=== PATIENT | male | born 1990 | race Caucasian/White ===

== ENCOUNTER 2021-09-17 08:20 | Outpatient (RCR) | payer BC, SELFPAY ==
--- NOTE | 2021-09-17 12:26 | PTOPEVAL ---
PHYSICAL THERAPY EVALUATION Thank you for referring Dario Vela to [facility].? Testing results revealed higher level VOR and balance dysfunctions. HEP was explained to Dario and his . No follow up is planned but if he has questions, he is to [facility]. I agree with the above. Referring Physician Date Admitting Provider: Attending Provider: Whitney Washington, ANP Referring Provider: *PT Outpatient Evaluation Start: 09/17/21 08:38 Freq: Status: Active Protocol: Document 09/17/21 08:39 RAVEN (Rec: 09/17/21 09:59 RAVEN [id number]) Therapy Assessment Status Assessment Status Assessment Status Evaluation Outpatient Past Medical History Past Medical History Source of Past Medical History Patient Respiratory History Hx Other Respiratory Disorders Yes: multiple allergies Gastrointestinal History Hx Gastroesophageal Reflux Disease Yes Evaluation Information Problem Diagnosis Vertigo Onset first episode 2018 Subjective Information Dario reports that he has Query Text:As Reported By Patient/ had dizziness in the past - Family appears to be more allergy related - able to control it. Most recently - had COVID vaccine - on a Wednesday - then on Wednesday evening - all of a sudden felt increase in dizziness different in the past. Also felt hot and feverish for a moment - then felt the dizziness. Did see MARGARITA on Wednesday - received Meclizine - has helped. When traveling - will prefer to drive. Will get some dizziness sitting at train crossing - watching train move . Doesn't go on spinning rides at amusement hanks. With recent hearing testing - needed to walk in a trailer - felt unsteady/dizzy with some of the stepping. Will get some dizziness with going from squatting to standing, sitting to standing at times. Getting out of bed - some dizziness at times Prior Level of Function Activity Level (Last 3 Months) Occupation drives heavy equipment, climb up on equipment Hand Dominance
== END 2021-10-17 09:43 | disposition home or self-care (01) ==
LOC: ANHHIPT 08:20
PROVIDERS: PCP Physician Assistant Medical; Visit Provider Physician Assistant Medical
DX: R42 Dizziness and giddiness (principal)
CPT/HCPCS: 97110; 97162

== ENCOUNTER 2023-07-02 02:46 | Day surgery (SDC) | payer BC, SELFPAY ==
[2023-06-18 15:06] VITALS: BMI 29.9
--- NOTE | 2023-07-01 13:48 | PM.HPGS ---
History of Present Illness History of Present Illness Consent: Risks, benefits, and alternatives have been discussed and questions answered. Patient agrees to proceed with procedure. Chief complaint: GERD Narrative: Dario Vela is a 33 year old male Referred for investigation of episodes of indigestion, acid reflux, bloating and upset stomach w/ nausea and vomiting x 6 months. He is currently taking pantoprazole 40mg daily. his attacks seem to come every month or 2. Almost always begins in the morning. He is not sure whether not this is the morning after he has used cannabis. Review of Systems Review of Systems: All systems reviewed & are unremarkable except as noted in HPI and below PMFSH Past Medical History Medical History Allergic rhinitis GERD (gastroesophageal reflux disease) Vitamin D deficiency Surgical History Surgical History No history of previous surgery Family History Family History Father Depression Family history of alcoholism Mother Family history of lung cancer Social History Social History Smoking packs per day: 0.5 Smoking cigarettes per day: 10.0 Years smoked: 10 Smoking pack-years: 5.00 Smoking status: Current every day smoker Tobacco type: cigarettes Second hand tobacco smoke exposure: Yes Alcohol intake: current Substance use: never Substance use type: marijuana Lack of Transportation: No Lack of Food: Never True Current Housing: I Have Housing Concerned About Future Housing: No Difficulty Paying Gas/Electric Bills: No Difficulty Paying for Meds: No Currently Unemployed: No Education: High School Diploma/GED Difficulty w/ Childcare or Family Care: No Living arrangements: with family Occupation/Education: occupation Gender identity (if verbalized by the patient): Male Sexual Orientation (if Verbalized by the Patient): Straight or Heterosexual Spiritual care concerns: No Meds Home Medications and Allergies Home Medications Medication Instructions Recorded Confirmed Type cetirizine 10 mg tablet (Zyrtec) 10 mg PO DAILY 09/29/22 06/18/23 History fluticasone furoate 100 1 inh inhalation DAILY 09/29/22 06/18/23 History mcg-vilanterol 25 mcg/dose inhalation powder (Breo Ellipta) pantoprazole 40 mg tablet,delayed 40 mg PO QAM #90 tabs 12/19/22 06/18/23 Rx release Allergies Allergy/AdvReac Type Severity Reaction Status Date / Time erythromycin base Allergy Unknown Vomiting Verified 07/02/23 08:13 Sulfa (Sulfonamide Allergy Unknown Unknown Verified 07/02/23 08:13 Antibiotics) Honey Bee Allergy Unknown Unknown Uncoded 07/02/23 08:13 paxil AdvReac [place] Uncoded 07/02/23 08:13 unusual Septra AdvReac Vomiting Uncoded 07/02/23 08:13 Exam Const: General: alert Orientation/consciousness: patient oriented x3 Resp: Auscultation: clear to auscultation bilaterally Cardio: Rhythm: regular rhythm GI: GI Palp: Yes Soft to palpation and No Tenderness to palpation present (GI) Neuro: General: patient oriented x3 Assessment and Plan Assessment and plan (1) Epigastric pain: Code(s): R10.13 - Epigastric pain Status: Acute Assessment and Plan: EGD with possible biopsy or dilatation or cautery.
[2023-07-02 08:14] VITALS: BP 125/69; PULSE 68; RESP 16; TEMP 36.4; O2SAT 100
[2023-07-02] MEDS: LACTATED RINGERS 1,000 ML 150 ML IV CONT (08:28)
--- NOTE | 2023-07-02 08:43 | WPDANESEPPF ---
Anes - Initial Pre Proc Eval Procedure: Operation Date: 07/02/23 09:30 Proposed Procedures p Esophagogastroduodenoscopy - Keith Foster MD Date/Time: 07/02/23 08:43 Surgeon: Keith Foster MD Pre Op Diagnosis: GERD Patient Data Age: 33 Gender: M Height: 1.8 m Weight: 95.7 kg Last Vital Signs Temp 97.5 F L 07/02/23 08:14 Pulse 68 07/02/23 08:14 Resp 16 07/02/23 08:14 BP 125/69 07/02/23 08:14 Pulse Ox 100 07/02/23 08:14 O2 Del Method Room Air 07/02/23 08:14 Allergies Allergy/AdvReac Type Severity Reaction Status Date / Time erythromycin base Allergy Unknown Vomiting Verified 07/02/23 08:13 Sulfa (Sulfonamide Allergy Unknown Unknown Verified 07/02/23 08:13 Antibiotics) Honey Bee Allergy Unknown Unknown Uncoded 07/02/23 08:13 paxil AdvReac Kyle Uncoded 07/02/23 08:13 unusual Septra AdvReac Vomiting Uncoded 07/02/23 08:13 Home Medications Medication Instructions Recorded Confirmed Type cetirizine 10 mg tablet (Zyrtec) 10 mg PO DAILY 09/29/22 06/18/23 History fluticasone furoate 100 1 inh inhalation DAILY 09/29/22 06/18/23 History mcg-vilanterol 25 mcg/dose inhalation powder (Breo Ellipta) pantoprazole 40 mg tablet,delayed 40 mg PO QAM #90 tabs 12/19/22 06/18/23 Rx release Patient hx anesthesia problems: none Family hx anesthesia problems: none Results Review: All pre-operative results and documents have been reviewed as part of the pre-operative evaluation. [facility] Past Medical History Medical History Allergic rhinitis GERD (gastroesophageal reflux disease) Vitamin D deficiency Surgical History Surgical History No history of previous surgery Family History Family History Father Depression Family history of alcoholism Mother Family history of lung cancer Social History Social History Smoking packs per day: 0.5 Smoking cigarettes per day: 10.0 Years smoked: 10 Smoking pack-years: 5.00 Smoking status: Current every day smoker Tobacco type: cigarettes Second hand tobacco smoke exposure: Yes Alcohol intake: current Substance use: never Substance use type: marijuana Lack of Transportation: No Lack of Food: Never True Current Housing: I Have Housing Concerned About Future Housing: No Difficulty Paying Gas/Electric Bills: No Difficulty Paying for Meds: No Currently Unemployed: No Education: High School Diploma/GED Difficulty w/ Childcare or Family Care: No Living arrangements: with family Occupation/Education: occupation Gender identity (if verbalized by the patient): Male Sexual Orientation (if Verbalized by the Patient): Straight or Heterosexual Spiritual care concerns: No Anes - Eval Final PreProcedure Day of Procedure 07/02/23 08:43 Patient weight: normal Heart: regular rate and rhythm Lungs: clear to auscultation Airway: Mallampati scale class II Neurological: alert and oriented Last oral intake: >/= 8 hours ASA classification: II Emergent: no Anesthetic plan: proceed Anesthesia type and monitoring: general GIVS and standard monitoring Results Review: All pre-operative results and documents have been reviewed as part of the pre-operative evaluation. Informed Consent: The patient's anesthetic plan and its attendant risks and benefits were discussed with the patient/family/POA. Questions were solicited and answers provided to the satisfaction of the patient/family/POA.
[2023-07-02 09:29] VITALS: BP 125/104; PULSE 84; RESP 20; O2SAT 97
[2023-07-02 09:39] VITALS: BP 125/67; PULSE 82; RESP 20; O2SAT 97
[2023-07-02 09:49] VITALS: BP 105/77; PULSE 74; RESP 18; O2SAT 99
== END 2023-07-02 10:02 | disposition home or self-care (01) ==
PROVIDERS: PCP Physician Assistant Medical; Visit Provider Internal Medicine Gastroenterology
PROC: 0DJ08ZZ Inspection of Upper Intestinal Tract, Via Natural or Artificial Opening Endoscopic (ICD-10-PCS; CPT 43235; principal; 2023-07-02 09:30)
DX: K29.70 Gastritis, unspecified, without bleeding (principal); K21.9 Gastro-esophageal reflux disease without esophagitis; Z79.51 Long term (current) use of inhaled steroids; F17.210 Nicotine dependence, cigarettes, uncomplicated
CPT/HCPCS: 43239; 87081; 88305; J2704; J7120

== ENCOUNTER → 2023-11-03 07:57 | Outpatient (CLI) | payer BC, SELFPAY ==
--- NOTE | ~2023-11-03 | US_ITS ---
US abdomen complete DATE: 11/03/2023 08:19 INDICATION: Abdominal pain, nausea, belching, vomiting TECHNIQUE: Real-time and Doppler analysis of the abdomen COMPARISON: None FINDINGS: The pancreatic tail is not completely demonstrated due to interference from overlying bowel gas. The pancreas otherwise appears unremarkable. No pancreatic duct dilatation. There is hepatic steatosis. No hepatic space-occupying mass lesion is detected. Normal hepatopedal po rtal venous flow. No gallstones or gallbladder wall thickening or abnormal pericholecystic fluid collection. Negative s onographic Espinoza's sign. The common bile duct measures 4 mm, normal. Normal splenic size. Right kidney measures approximately 11.2 cm length, left kidney 11.3 cm. No renal mass lesion or hydr onephrosis is evident. The inferior vena cava is unremarkable. Normal caliber of the abdominal aorta. IMPRESSION: Hepatic steatosis Reviewed, dictated and finalized at [facility]. Reviewed, dictated and finalized at location [facility]. M INSPECTOR IMPRESSION: Hepatic steatosis
== END ==
PROVIDERS: PCP Physician Assistant Medical; Visit Provider Physician Assistant Medical
DX: K76.0 Fatty (change of) liver, not elsewhere classified (principal)
CPT/HCPCS: 76700

== ENCOUNTER 2024-02-11 08:01 | Outpatient (CLI) | payer BC, SELFPAY ==
--- NOTE | ~2024-02-11 | NM_ITS ---
EXAMINATION: NM hepatobiliary wo pharm DATE: 02/11/2024 11:05 INDICATION: Vomiting COMPARISON: Ultrasound dated 11/03/2023 TECHNIQUE: 4.7 mCi Tc-99m mebrofenin (Choletec) was administered intravenously. Scintigraphic images of the abdomen were obtained for one hour. At the 1 hour time point, the patient drank 8 oz Ensure, and imaging was continued for 60 minutes. Gallbladder ejection fraction was calculated by the technol ogist. FINDINGS: There is normal clearance of radiotracer from the blood pool. There is homogeneous tracer u ptake by the liver. Activity progresses to the bowel and gallbladder. The gallbladder ejection fract ion (GBEF) is 90%. Note that with this technique, normal GBEF >= 33%. IMPRESSION: 1. Normal hepatobiliary scan Reviewed, dictated and finalized at location [facility].
== END 2024-02-11 08:02 | disposition home or self-care (01) ==
PROVIDERS: PCP Physician Assistant Medical; Visit Provider Physician Assistant Medical
DX: K21.9 Gastro-esophageal reflux disease without esophagitis (principal); R11.10 Vomiting, unspecified
CPT/HCPCS: 78226; A9537

== ENCOUNTER 2025-02-26 10:48 | Emergency (ER) | payer BC, SELFPAY ==
[2025-02-26 10:52] VITALS: BP 142/94; PULSE 91; RESP 19; TEMP 36.6; O2SAT 100
--- NOTE | 2025-02-26 12:08 | ED_ITS ---
HPI - Skin/Abscess/Foreign Bdy General Chief complaint: Skin/Abscess/Foreign Body <Cindy Armenta PA-C - Last Filed: 02/26/25 17:42> Stated complaint: cyst on tailbone <Cindy Armenta PA-C - Last Filed: 02/26/25 17:42> Time Seen by Provider: 02/26/25 12:08 <Cindy Armenta PA-C - Last Filed: 02/26/25 17:42> Focused HPI: This is a 34 year old male that presents to the ER for swelling to the tailbone, ongoing since Wednesday. Reports previous history of same. Reports worsening pain to the area. He was not able to get in to see his PCP which prompted him to come to the ER. Denies fevers or drainage. GENERAL: Well-appearing, well-nourished, and in no acute distress. HEAD: Normocephalic, atraumatic. CHEST: No respiratory distress. HEART: Regular rate ? NEURO: ?Alert and oriented x3. Patient screened in triage and initial orders placed.? ?Additional care and disposition to be based upon?diagnostic testing and treatment. <Cindy Armenta PA-C - Last Filed: 02/26/25 17:42> Related Data Home medications: Home Medications ?Medication ?Instructions ?Recorded ?Confirmed ?Last Taken ?Type cetirizine 10 mg tablet (Zyrtec) 10 mg PO DAILY 09/29/22 10/04/24 Unknown Histo ry <MARGARITA Nagel Last Filed: 02/26/25 17:42> Allergies/Adverse reactions: Allergies Allergy/AdvReac Type Severity Reaction Status Date / Time sulfamethizole Allergy Severe Unknown Verified 02/26/25 10:55 erythromycin base Allergy Unknown Vomiting Verified 02/26/25 10:55 Sulfa (Sulfonamide Allergy Unknown Unknown Verified 02/26/25 10:55 Antibiotics) bee venom protein (honey bee) Allergy Unknown Verified 02/26/25 10:55 paroxetine (From Paxil) Allergy Other Verified 02/26/25 10:55 sulfamethoxazole (From AdvReac Vomiting Verified 02/26/25 10:55 Septra) trimethoprim (From Septra) AdvReac Vomiting Verified 02/26/25 10:55 <Cindy Armenta PA-C - Last Filed: 02/26/25 17:42> Review of Systems Review of Systems: All systems reviewed & are unremarkable except as noted in HPI and below <Cindy Armenta PA-C - Last Filed: 02/26/25 17:42> [facility] Past Medical History Medical History: Medical History (Updated 02/26/25 @ 14:21 by Anthony Ballard MD) Mild persistent asthma, uncomplicated Previously saw Dr. Downs Gastritis Hepatic steatosis Emesis Dyspepsia Allergic rhinitis GERD (gastroesophageal reflux disease) Vitamin D deficiency <Cindy Armenta PA-C - Last Filed: 02/26/25 17:42> Surgical History Surgical History: Surgical History (System 03/22/24 @ 10:12 by Gretta Junior) No history of previous surgery <Cindy Armenta PA-C - Last Filed: 02/26/25 17:42> Family History Family History: Family History (Reviewed 01/18/24 @ 08:29 by Radha Callejas [facility]) Father Depression Family history of alcoholism Mother Family history of lung cancer <Cindy Armenta PA-C - Last Filed: 02/26/25 17:42> Social History Social History: Social History (Updated 10/03/24 @ 10:18 by Casimiro Holder) Social History: 10/02/24 Patient declined SDOH Smoking packs per day: 0.5 Smoking cigarettes per day: 10.0 Years smoked: 10 Smoking pack-years: 5.00 Smoking status: Current every day smoker Tobacco type: cigarettes Second hand tobacco smoke exposure: Yes Alcohol intake: current Substance use: never Substance use type: marijuana Lack of Transportation: No Lack of Food: Never True Current Housing: I Have Housing Concerned About Future Housing: No Difficulty Paying Gas/Electric Bills: No Difficulty Paying for Meds: No Currently Unemployed: No Education: High School Diploma/GED Difficulty w/ Childcare or Family Care: No Living arrangements: with family Occupation/Education: occupation Gender identity (if verbalized by the patient): Male Sexual Orientation (if Verbalized by the Patient): Straight or Heterosexual Spiritual care concerns: No <Cindy Armenta PA-C - Last Filed: 02/26/25 17:42> Course Vital Signs Vital signs: Vital Signs Temperature 97.8 F 02/26/25 10:52 Pulse Rate 91 02/26/25 10:52 Respiratory Rate 19 02/26/25 10:52 Blood Pressure 142/94 H 02/26/25 10:52 Pulse Oximetry 100 02/26/25 10:52 Oxygen Delivery Room Air 02/26/25 10:52 Temperature 97.8 F 02/26/25 10:52 Pulse Rate 91 02/26/25 10:52 Respiratory Rate 19 02/26/25 10:52 Blood Pressure 142/94 H 02/26/25 10:52 Pulse Oximetry 100 02/26/25 10:52 Oxygen Delivery Room Air 02/26/25 10:52 <Cindy Armenta PA-C - Last Filed: 02/26/25 17:42> Vital Signs Temperature 97.8 F 02/26/25 10:52 Pulse Rate 91 02/26/25 10:52 Respiratory Rate 19 02/26/25 10:52 Blood Pressure 142/94 H 02/26/25 10:52 Pulse Oximetry 100 02/26/25 10:52 Oxygen Delivery Room Air 02/26/25 10:52 Temperature 97.8 F 02/26/25 10:52 Pulse Rate 91 02/26/25 10:52 Respiratory Rate 19 02/26/25 10:52 Blood Pressure 142/94 H 02/26/25 10:52 Pulse Oximetry 100 02/26/25 10:52 Oxygen Delivery Room Air 02/26/25 10:52 <Anthony Ballard MD - Last Filed: 02/26/25 14:28> Procedures Abscess I/D buttock: Date of Incision: 02/26/25 <Anthony Ballard MD - Last Filed: 02/26/25 14:28> Time of Incision: 14:26 <Anthony Ballard MD - Last Filed: 02/26/25 14:28> Local Anesthetic: lidocaine 1%, bupivacaine 0.5% and with epi <Anthony Ballard MD - Last Filed: 02/26/25 14:28> Amount of anesthesia used (mL): 4 <Anthony Ballard MD - Last Filed: 02/26/25 14:28> Technique: incised with #11 blade <Anthony Ballard MD - Last Filed: 02/26/25 14:28> Packing used?: iodoform <Anthony Ballard MD - Last Filed: 02/26/25 14:28> I&D Results: Pus <Anthony Ballard MD - Last Filed: 02/26/25 14:28> Complications: pain <Anthony Ballard MD - Last Filed: 02/26/25 14:28> Discharge Plan Discharge Clinical Impression: Pilonidal cyst with abscess <Cindy Armenta PA-C - Last Filed: 02/26/25 17:42> Patient Disposition: Home <Cnidy Armenta PA-C - Last Filed: 02/26/25 17:42> Condition: Stable <Cindy Armenta PA-C - Last Filed: 02/26/25 17:42> Instructions: Antibiotic Form, Pilonidal Cyst (ED) <Cindy Armenta PA-C - Last Filed: 02/26/25 17:42> Additional Instructions: Return ER if you have worsening pain, you develop fever 100.4? F, have additional concerns. Remove your packing in 2 days. <Cindy Armenta PA-C - Last Filed: 02/26/25 17:42> Patient Language: Frisian <Cindy Armenta PA-C - Last Filed: 02/26/25 17:42> Prescriptions: New hydrocodone-acetaminophen 5-325 mg tablet 1 tablet PO Q6H PRN (Reason: pain) Qty: 12 0RF ondansetron 4 mg tablet,disintegrating 4 mg PO Q6H PRN (Reason: nausea and vomiting) Qty: 10 0RF amoxicillin-pot clavulanate 875-125 mg tablet 1 tablet PO Q12H Qty: 20 0RF No Action cetirizine [Zyrtec] 10 mg tablet 10 mg PO DAILY dicyclomine 10 mg capsule 10 mg PO QID PRN (Reason: abdominal pain) Qty: 30 0RF fluticasone furoate-vilanterol [Breo Ellipta] 100-25 mcg/dose blister with device 1 inh inhalation DAILY Qty: 180 1RF albuterol sulfate 90 mcg/actuation HFA aerosol inhaler 2 inh inhalation Q4H PRN (Reason: shortness of breath or wheezing) Qty: 6.7 0RF ondansetron 4 mg tablet,disintegrating 4 mg PO Q8H PRN (Reason: nausea and vomiting) Qty: 10 3RF pantoprazole 40 mg tablet,delayed release (DR/EC) 40 mg PO QAM Qty: 90 1RF <Cindy Armenta PA-C - Last Filed: 02/26/25 17:42> Follow-up/Referrals: Deborah Rojas MD [Physician] - 1 Week Whitney Washington PA-C [Primary Care Provider] - 1 Week <Cindy Armenta PA-C - Last Filed: 02/26/25 17:42> Stand Alone Forms: Work/School Release IP <Cindy Armenta PA-C - Last Filed: 02/26/25 17:42>
--- OUTSIDE RECORDS SUMMARY | 2025-02-26 12:36 | XMS_ITS | Clinical Summary ---
Author Organization [facility] Address [facility] [place] [address] Care Team Providers Care Sexton Helper Name Role Phone Whitney Washington Primary Care Provider [phone] Allergies Active Allergy Reactions Criticality Noted Date Comments Azithromycin Nausea and Vomiting 11/30/2019 Sulfa Antibiotics Anaphylaxis High 11/30/2019 Medications pantoprazole EC 20 MG tablet Take 1 tablet (20 mg total) by mouth daily. Active fluticasone furoate-vilanterol 100-25 MCG/INH inhaler Inhale 1 puff into the lungs daily. Active albuterol sulfate HFA 108 (90 Base) MCG/ACT inhaler Inhale 2 puffs into the lungs every 6 (six) hours as needed for Wheezing. Active ondansetron (ZOFRAN-ODT) 4 MG disintegrating tablet DISSOLVE 1 TABLET ON THE TONGUE EVERY 8 HOURS NEEDED FOR NAUSEA OR VOMITING 4 Active Active Problems No known active problems Immunizations Immunization Administration Dates Next Due Dtp (Generic) 03/18/1994 Hepatitis B Pediatric 02/20/1999,10/03/1998,08/02 MMR (MMRII) 03/18/1994 Polio Opv (Generic) 03/18/1994 Social History Tobacco Use Types Packs/Day Years Used Date Smoking Tobacco: Every Day Cigarettes Smokeless Tobacco: Never Tobacco Cessation:Ready to Q uit: No; Counseling Given: Yes Alcohol Use Standard Drinks/Week Comments Yes 0 (1 standard drink = 0.6 oz pur e alcohol) SOCIALLY Sex and Gender Information Value Date Recorded Sex Assigned at Not on file Legal Sex Male 5:52 PM CDT Gender Identity Not on file Sexual Orientation Not on file Last Filed Vital Signs Vital Sign Reading Time Taken Comments Blood Pressure 140/92 06/23/2024 4:24 PM CDT Pulse 96 06/23/2024 4:24 PM CDT Temperature 36.4 C (97.5 F) 06/23/2024 4:24 PM CDT Respiratory Rate 18 06/23/2024 4:24 PM CDT Oxygen Saturation 100% 06/23/2024 4:24 PM CDT Inhaled Oxygen Concentration - - Weight 93 kg (205 lb) 06/23/2024 4:24 PM CDT Height 180.3 cm (5' 11 ) 06/23/2024 4:24 PM CDT Body Mass Index 28.59 06/23/2024 4:24 PM CDT Plan of Treatment Health Maintenance Due Date Last Done Comments Annual Physical 1992 Hepatitis C 2007 DTaP, Tdap and Td Vaccines ( 2 - Tdap) 2008 03/18/1994 Pneumococcal Vaccine: Pediatrics (0 to 5 Years) and At-Risk Patients (6 to 49 Years) (1 of 2 - PCV) 2008 COVID-19 Vaccine (2023-2 5 season) 2024 10/03/2021, 09/05/2021 PHQ-2 (Physician [place]) 11/01/2024 Hepatitis B Vaccines Completed 02/20/1999, 10/03/1998, 08/29/1998 HPV Vaccines Aged Out No longer eligi ble based on patient's age to complete this topic Meningococcal B Vaccine Aged Out No l onger eligible based on patient's age to complete this topic Meningococcal Vaccine Aged Out No ace carolee eligible based on patient's age to complete this topic RSV Immunizations Under 20 Months Aged Out No longer eligible b ased on patient's age to complete this topic Insurance BLUE CROSS BLUE [employer]IELD Care Teams Sexton Helper Relationship Specialty Start Date End Date Whitney Washington PA PCP - General PHYSICIAN PLUMBER 11/30/19
--- OUTSIDE RECORDS SUMMARY | 2025-02-26 14:16 | XMS_ITS | Clinical Summary ---
Author Organization [facility] Address [facility] [place] [address] Care Team Providers Care Writer Technical Publications Name Role Phone Whitney Washington Primary Care Provider [phone] Allergies Active Allergy Reactions Criticality Noted Date [...] 5 season) 2024 10/03/2021, 09/05/2021 PHQ-2 (Physician [place]) 11/01/2024 Hepatitis B Vaccines Completed 02/20/1999, 10/03/1998, [...] Insurance BLUE CROSS BLUE SHIELD Care Teams Writer Technical Publications Relationship Specialty Start Date End Date Whitney Washington PA PCP - General PHYSICIAN DESIGN SUPERVISOR 11/30/19
== END 2025-02-26 14:32 | disposition home or self-care (01) ==
PROVIDERS: Emergency Provider Emergency Medicine; PCP Physician Assistant Medical
DX: L05.01 Pilonidal cyst with abscess (principal); J45.30 Mild persistent asthma, uncomplicated; E55.9 Vitamin D deficiency, unspecified; K21.9 Gastro-esophageal reflux disease without esophagitis; F17.210 Nicotine dependence, cigarettes, uncomplicated
CPT/HCPCS: 10080; 99283

== ENCOUNTER 2025-05-18 00:17 | Day surgery (SDC) | payer BC, SELFPAY ==
[2025-05-15 16:58] VITALS: BMI 29.9
--- NOTE | 2025-05-15 17:15 | SUR.PREOP ---
Report to the Outpatient Waiting Room, entrance under the green pavilion located off [facility], at time 6:00a.m. on date 05/18/2025. Planned Procedure Time: 7:30a.m..? Time changes happen often and if your time is changed the preop area will call you the afternoon before. - You and your visitor will be asked to self-screen and do not enter if you have any COVID symptoms. Please call surgeon if you need to reschedule. - A mask is optional within the hospital at this time. Patients may have clear liquids (water, carbonated beverages, clear teas, apple juice) until 3 hours prior to surgery with a maximum of 20 ounces. - No food from midnight until time of surgery and no smoking, or chewing tobacco (or any form of nicotine). No chewing gum, candy or mints. Take only the following medications with a SIP of water on the morning of surgery: inhalers DO NOT STOP ANY OF YOUR OTHER PRESCRIPTION MEDICATIONS PRIOR TO SURGERY EXCEPT THE FOLLOWING Hold all vitamins and supplements for 3 days per anesthesiologist. Medications to discontinue per physician VITAMINS Date to take last dose 05/15/2025 Please no make-up, nail tamazight, hairspray, perfume, deodorant, or body powder the day of surgery.? No jewelry (including any body piercings) or valuables the day of surgery, leave them at home.? Please take a shower or bath the night before, or the morning of, surgery with an antibacterial soap.? Wear comfortable, loose fitting clothing.? Children are encouraged to wear pajamas. - Jewelry must be removed prior to entering the operating room.? Rings and piercings that are not removed may be cut off. - The hospital will not accept responsibility for valuables.? - Please leave all valuables, including medications, at home the day of surgery. If you are going home after surgery, a licensed dumpcart driver must drive you home.? - NO public transportation without another adult if you receive anesthesia. - We recommend that an adult stay with you for 24 hours following discharge. - We also recommend that you do not drive, make important decision, drink alcoholic beverages, or take any drugs that were not prescribed by your health care provider for at least 24 hours after your discharge time. Follow any additional instructions given to you from your surgeon. Telephone instructions given to Dario Dane and asked if any additional questions and then verbalized understanding. Patient advised to call surgeon office or pre surgery nurse liaison [phone] if any additional questions.
[2025-05-18] VITALS (9 sets, daily range): BP systolic 113–141; BP diastolic 79–96; PULSE 75–99; RESP 12–24; TEMP 36.2–37.1; O2SAT 96–100
--- OUTSIDE RECORDS SUMMARY | 2025-05-18 00:19 | XMS_ITS | Clinical Summary ---
Author Organization [facility] Address [facility] [place] [address] Care Team Providers [employer] Name Role Phone Whitney Washington Primary Care Provider [phone] Allergies Active Allergy Reactions Criticality Noted Date [...] 4:24 PM CDT Height 180.3 cm (5' 11) 06/23/2024 4:24 PM CDT Body Mass Index [...] 5 season) 2024 10/03/2021, 09/05/2021 PHQ-2 (Physician [place]) 11/01/2024 Hepatitis B Vaccines Completed 02/20/1999, 10/03/1998, [...] Insurance BLUE CROSS BLUE SHIELD Care Teams [employer] Relationship Specialty Start Date End Date Whitney Washington PA PCP - General PHYSICIAN FINANCIAL SERVICES PROFESSIONAL 11/30/19
--- NOTE | 2025-05-18 06:51 | WPDANESEPPF ---
Anes - Initial Pre Proc Eval Procedure: Operation Date: 05/18/25 07:30 Proposed Procedures p Pilonidal Cystectomy - Zeus Rice MD s Excision Right Posterior Lateral Neck Cyst - Zeus Rice MD Date/Time: 05/18/25 06:51 Surgeon: Zeus Rice MD Pre Op Diagnosis: Pilonidal Cyst, Rt posterior lateral neck cyst Patient Data Age: 35 Gender: M Height: 1.8 m Weight: 97.52 kg Allergies Allergy/AdvReac Type Severity Reaction Status Date / Time sulfamethizole Allergy Severe Unknown Verified 05/15/25 16:54 erythromycin base Allergy Unknown Vomiting Verified 05/15/25 16:54 Sulfa (Sulfonamide Allergy Unknown Unknown Verified 05/15/25 16:54 Antibiotics) bee venom protein (honey bee) Allergy Unknown Verified 05/15/25 16:54 paroxetine (From Paxil) Allergy Other Verified 05/15/25 16:54 sulfamethoxazole (From AdvReac Vomiting Verified 05/15/25 16:54 Septra) trimethoprim (From Septra) AdvReac Vomiting Verified 05/15/25 16:54 Home Medications ?Medication ?Instructions ?Recorded ?Confirmed ?Type cetirizine 10 mg tablet (Zyrtec) 10 mg PO DAILY 09/29/22 05/15/25 History dicyclomine 10 mg capsule 10 mg PO QID PRN abdominal pain 01/18/24 05/15/25 Rx #30 caps albuterol sulfate 90 mcg/actuation 2 inh inhalation Q4H PRN shortness 10/04/24 05/15/25 Rx aerosol inhaler of breath or wheezing #6.7 grams pantoprazole 40 mg tablet,delayed 40 mg PO QAM #90 tabs 12/08/24 05/15/25 Rx release fluticasone furoate 100 1 inh inhalation DAILY #180 ea 04/06/25 05/15/25 Rx mcg-vilanterol 25 mcg/dose inhalation powder (Breo Ellipta) ondansetron 4 mg disintegrating 4 mg PO Q6H PRN nausea and 05/01/25 05/15/25 Rx tablet vomiting #10 tabs cholecalciferol (vitamin D3) 50 50 mcg PO DAILY #90 caps 05/07/25 05/15/25 Rx mcg (2,000 unit) capsule sildenafil 50 mg tablet (Viagra) 50 mg PO DAILY PRN sexual activity 05/15/25 05/15/25 History Patient hx anesthesia problems: none Family hx anesthesia problems: none Results Review: All pre-operative results and documents have been reviewed as part of the pre-operative evaluation. [facility] Past Medical History Medical History (Updated 05/04/25 @ 17:55 by Whitney Washington PA-C) Vitamin B12 deficiency Mild persistent asthma, uncomplicated Previously saw Dr. Downs Gastritis Hepatic steatosis Emesis Dyspepsia Allergic rhinitis GERD (gastroesophageal reflux disease) Vitamin D deficiency Surgical History Surgical History (Updated 03/13/25 @ 10:37 by Nate Gonzalez MA) Hx of removal of cyst Hx of endoscopy No history of previous surgery Family History Family History (Updated 03/13/25 @ 10:37 by Nate Gonzalez MA) Father Depression Family history of alcoholism Mother Family history of lung cancer Depression Mother Family history of diabetes mellitus in first degree relative Grandparent Family history of lung cancer Social History Social History (Updated 05/01/25 @ 11:17 by Hailey Dee MA) Social History: 04/24/25 Patient declined SDOH Smoking packs per day: 0.5 Smoking cigarettes per day: 10.0 Years smoked: 10 Smoking pack-years: 5.00 Smoking status: Current every day smoker Tobacco type: cigarettes Second hand tobacco smoke exposure: Yes Alcohol intake: current Substance use: never Substance use type: marijuana Lack of Transportation: No Lack of Food: Never True Current Housing: I Have Housing Concerned About Future Housing: No Difficulty Paying Gas/Electric Bills: No Difficulty Paying for Meds: No Currently Unemployed: No Education: High School Diploma/GED Difficulty w/ Childcare or Family Care: No Living arrangements: with family Occupation/Education: occupation Gender identity (if verbalized by the patient): Male Sexual Orientation (if Verbalized by the Patient): Straight or Heterosexual Spiritual care concerns: No Anes - Eval Final PreProcedure Day of Procedure 05/18/25 06:51 Patient weight: obese Heart: regular rate and rhythm Lungs: clear to auscultation Airway: Mallampati scale class II Neurological: alert and oriented Last oral intake: >/= 8 hours ASA classification: III Emergent: no Anesthetic plan: proceed Anesthesia type and monitoring: general ETT and standard monitoring Results Review: All pre-operative results and documents have been reviewed as part of the pre-operative evaluation. Informed Consent: The patient's anesthetic plan and its attendant risks and benefits were discussed with the patient/family/POA. Questions were solicited and answers provided to the satisfaction of the patient/family/POA.
[2025-05-18] MEDS: LACTATED RINGERS 1,000 ML 30 ML IV CONT (07:00)
[2025-05-18] MEDS: SCOPOLAMINE 1 MG PATCH 1 PATCH TRANSDERM (07:00)
--- NOTE | 2025-05-18 07:19 | P.HP_ITS ---
H&P: HPI History of Present Illness Date/Time: 05/18/25 07:19 Chief Complaint: Pilonidal cyst Narrative: Dario is a 34 y/o male who presents to the office at the request of Whitney Washington PA-C for an evaluation of a pilonidal cyst without abscess. Patient states he has had flare-ups of the cyst for approximately 1 year. Patient reports the area has spontaneously drained at times, but this recent flare up caused him so much pain he presented to [facility] on 02/26/25 where and I&D was performed and he was prescribed antibiotics. He has since finished antibiotics. He denies current pain or drainage. Patient also reports he has had a lump on his neck for years. Review of Systems Review of Systems: The remainder of the review of systems to include constitutional, HEENT, cardiovascular, respiratory, GI, , integumentary, musculoskeletal, endocrine, immunologic, hematologic, psychiatric, and neurologic are all negative except for which is mentioned above in the HPI. [facility] Past Medical History Medical History Vitamin B12 deficiency Mild persistent asthma, uncomplicated Previously saw Dr. Downs Gastritis Hepatic steatosis Emesis Dyspepsia Allergic rhinitis GERD (gastroesophageal reflux disease) Vitamin D deficiency Surgical History Surgical History Hx of removal of cyst Hx of endoscopy No history of previous surgery Family History Family History Father Depression Family history of alcoholism Mother Family history of lung cancer Depression Mother Family history of diabetes mellitus in first degree relative Grandparent Family history of lung cancer Social History Social History Social History: 04/24/25 Patient declined SDOH Smoking packs per day: 0.5 Smoking cigarettes per day: 10.0 Years smoked: 10 Smoking pack-years: 5.00 Smoking status: Current every day smoker Tobacco type: cigarettes Second hand tobacco smoke exposure: Yes Alcohol intake: current Substance use: never Substance use type: marijuana Lack of Transportation: No Lack of Food: Never True Current Housing: I Have Housing Concerned About Future Housing: No Difficulty Paying Gas/Electric Bills: No Difficulty Paying for Meds: No Currently Unemployed: No Education: High School Diploma/GED Difficulty w/ Childcare or Family Care: No Living arrangements: with family Occupation/Education: occupation Gender identity (if verbalized by the patient): Male Sexual Orientation (if Verbalized by the Patient): Straight or Heterosexual Spiritual care concerns: No Meds Home Medications and Allergies Home Medications ?Medication ?Instructions ?Recorded ?Confirmed ?Type cetirizine 10 mg tablet (Zyrtec) 10 mg PO DAILY 09/29/22 05/15/25 History dicyclomine 10 mg capsule 10 mg PO QID PRN abdominal pain 01/18/24 05/15/25 Rx #30 caps albuterol sulfate 90 mcg/actuation 2 inh inhalation Q4H PRN shortness 10/04/24 05/15/25 Rx aerosol inhaler of breath or wheezing #6.7 grams pantoprazole 40 mg tablet,delayed 40 mg PO QAM #90 tabs 12/08/24 05/15/25 Rx release fluticasone furoate 100 1 inh inhalation DAILY #180 ea 04/06/25 05/15/25 Rx mcg-vilanterol 25 mcg/dose inhalation powder (Breo Ellipta) ondansetron 4 mg disintegrating 4 mg PO Q6H PRN nausea and 05/01/25 05/15/25 Rx tablet vomiting #10 tabs cholecalciferol (vitamin D3) 50 50 mcg PO DAILY #90 caps 05/07/25 05/15/25 Rx mcg (2,000 unit) capsule sildenafil 50 mg tablet (Viagra) 50 mg PO DAILY PRN sexual activity 05/15/25 05/15/25 History Allergies Allergy/AdvReac Type Severity Reaction Status Date / Time sulfamethizole Allergy Severe Unknown Verified 05/18/25 07:20 erythromycin base Allergy Unknown Vomiting Verified 05/18/25 07:20 Sulfa (Sulfonamide Allergy Unknown Unknown Verified 05/18/25 07:20 Antibiotics) bee venom protein (honey bee) Allergy Unknown Verified 05/18/25 07:20 paroxetine (From Paxil) Allergy Other Verified 05/18/25 07:20 sulfamethoxazole (From AdvReac Vomiting Verified 05/18/25 07:20 Septra) trimethoprim (From Septra) AdvReac Vomiting Verified 05/18/25 07:20 Vital Signs Vital Signs - 24 hr 05/18/25 07:00 Temperature 37.1 C Pulse Rate 75 Respiratory Rate 14 Blood Pressure 122/79 Pulse Oximetry 100 Oxygen Delivery Room Air Exam Const: General: comfortable and no acute distress HENMT: Ears: TM's normal bilaterally Face/Nose/Sinus: Normal nares present Mouth: Yes moist mucous membranes Eyes: General: appearance normal, both eyes and all related structures Sclera: sclerae normal Pupils: Equal, round and reactive pupils present EOM: EOMs intact bilaterally Neck: Neck: supple and no JVD Resp: Effort & Inspection: normal respiratory effort Auscultation: clear to auscultation bilaterally Cardio: Rate: regular rate Rhythm: regular rhythm GI: GI Palp: Yes Soft to palpation, No Firmness to palpation present (GI), No Tenderness to palpation present (GI), No Guarding due to palpation present (GI) and No Hernia present Skin: Other: At upper midline gluteal cleft, there are 2 pits in upper 1/2 of cleft. No abscess at this time, no redness or drainage. 2cm x 1.5cm sebaceous cyst right posterior lateral neck. Neuro: General: gait normal Speech: normal speech Sensory Exam: normal sensation Extrem: General: normal to inspection Psych: Mental Status: mental status grossly normal Affect: normal affect Assessment and Plan Assessment and plan (1) Pilonidal cyst: Code(s): L05.91 - Pilonidal cyst without abscess Status: Acute Assessment and Plan: I have reviewed office notes from Whitney Washington PA-C along with [facility] notes prior to patient visit. I am recommending a pilonidal cystectomy and excision right posterior lateral neck cyst to be done under general anesthesia as an outpatient. Procedure risks, benefits, indications, and expected outcomes were discussed with the patient in detail. All questions were answered. Patient would like to proceed. Follow-up 2 weeks postoperatively.
--- NOTE | 2025-05-18 07:22 | WPDHPUPDATE1 ---
History and Physical Update Update Date/Time: 05/18/25 07:22 History and Physical has been reviewed, including an updated exam of the patient. There are NO changes in the patient's condition. Risks, benefits, and alternatives have been discussed and questions answered. Patient agrees to proceed with procedure.
[2025-05-18] MEDS: ceFAZolin 2 GM in SODIUM CHLORIDE 0.9% IV 50 ML 100 ML IVPB (07:28)
--- NOTE | 2025-05-18 08:04 | S_PTH ---
PATIENT: Dario Vela LOC: [facility] U#:[id number] AGE/SX: 35/M ROOM: RE05/18/[address]: Zeus Rice MD : 1990 BED: DIS: 05/18/2025 SPEC #: [id number] RECD: 05/18/25 10:08 STATUS: ELIDA REQ #: [id number] MARYJANE: 05/18/25 08:[address]: Zeus Rice DEPT: [facility] Surgical RECD BY: Jessica Gamboa ENTERED: 05/18/25 10:08 SP TYPE: Surgical OTHR DR: Whitney Washington PA-C Tissues: A - Cyst B - Cyst Procedures: Hematoxylin and Eosin Stain Gross and Microscopic Level 4
[2025-05-18] MEDS: KETOROLAC 15 MG/ML VIAL (*BKC) IV PUSH (08:34)
[2025-05-18] MEDS: LIDO 1%/EPINEPHRINE 1:100,000 20 ML VIAL INFILTRATE (09:01)
--- NOTE | 2025-05-18 09:02 | SUR.OPER ---
posterior lateral neck cyst .[id number] with 3cm wound closure
--- NOTE | 2025-05-18 09:18 | P.OP_ITS ---
Procedure Note - Detailed Date of Procedure 05/18/25 Pre-op Diagnosis Pilonidal Cyst, Rt posterior lateral neck cyst Post-op Diagnosis Same Procedure Performed Extensive pilonidal cystectomy Excision right posterior lateral sebaceous cyst with 3cm intermediate layered wound closure Surgeon Zeus Rice MD Account Planner ROBIN Domínguez Anesthesia General Indications Patient is a 35-year-old white male who has had multiple episodes of infection of pilonidal cyst. He has had at least 1 incision and drainage of an abscess associated with the cyst. He currently has no infection the cyst of which is to have a pilonidal cystectomy prevent further episodes of abscess formation and infection. He also has a small non ruptured 1.5cm right posterior neck sebaceous cyst which he would like to have excised as well. He has been large in slowly. We will go ahead remove that cyst as well. Findings Patient had a pilonidal cyst in the midportion of the upper midline gluteal cleft. There was a sinus tract and extension of the cyst superiorly with a chronic abscess cavity which was excised cyst. The excision of the pilonidal cyst requiring multiple layers of closure for an extensive pilonidal cystectomy. The cyst on the right posterior lateral neck measured [id number]. It required a 3cm intermediate layered wound closure Description of Procedure After informed consent was obtained patient brought to the operating room was placed under general endotracheal anesthesia on the gurney then turned onto the prone jun-knife position on the operating table. Care was taken make sure all the pressure points well padded. The buttocks were then taped apart exposing the upper midline gluteal cleft. There was then prepped and draped usual sterile fashion. I then identified the 2 pits within the midportion of the upper midline gluteal cleft. There was no scar were a pilonidal abscess had been drained previously. This is in the midline above the pilonidal cysts. I then made a elongated elliptical incision to include the scar from the abscess drainage as well as the pits in the midline and the underlying pilonidal cyst wall. Dissection was carried deeply down through the dermis skin with a scalpel electrocautery was used to dissect down through the subcutaneous tissues all the way down to the presacral fascia. I completely excised out the ellipse of tissue with the overlying attached skin and pilonidal cyst as well as the chronic abscess cavity extending cephalad for about 2cm from the openings to the pilonidal cyst. This was all sent to pathology for examination. I then irrigated out the incision sterile saline solution the hemostasis was achieved utilized electrocautery. This was an extensive excision of the pilonidal cyst. After injection of 1% lidocaine mixed with 0.5% Marcaine with some epinephrine mixed in a 50 50 mixture, the wound was then closed in multiple layers of interrupted 0 Vicryl sutures in the deeper subcutaneous tissues just above the presacral fascia. This was then followed by layer interrupted 2-0 Vicryl sutures in the mid subcutaneous tissues. The most superficial subcutaneous tissues were then closed utilizing 3-0 Vicryl sutures in the deep dermal layer. Interrupted 3-0 nylon sutures placed in a vertical mattress fashion was then placed to approximate the edges of the skin. The incision closed easily without any tension. It was then cleaned and then dressed with antibiotic ointment and cover with a dry dressing. I then turned my attention to excising out the right posterior lateral neck sebaceous cyst. 1% lidocaine without epinephrine was injected around the cyst wall for local anesthetic effect. I then made an elliptical transverse incision deeply down through the dermis the skin for operating the whole cyst wall without rupturing the cyst wall. Electrocautery was then used to completely excise out the ellipse of tissue encompassing the whole cyst wall in the attached ellipse of skin. The cyst measured approximately [id number]. It was sent to pathology for examination. I then achieved hemostasis in the incision electrocautery. The was then irrigated sterile saline solution and then closed utilizing interrupted 3-0 Vicryl sutures in multiple layers and subcutaneous tissues. Skin edges were then approximated utilizing a running subcuticular 4-0 Monocryl suture. The intermediate layered wound closure measured 3 cm in length. Incision was then cleaned the skin glue was applied. The patient tolerated the procedure well no complications. All sponges, needles, and instrument counts were correct at the end procedure. EBL was _20__cc. The patient was awakened and taken to recovery in stable and satisfactory condition. Implants None Estimated Blood Loss 20 Drains No Packing No Pathology Yes (Pilonidal cyst and posterior neck cyst sent to pathology separately.) Complications No immediate complications Condition Stable Disposition PACU [facility] Billing Surgery - Charge Forward: Surgery Billing
[2025-05-18] MEDS: ONDANSETRON INJ 4 MG/2 ML VIAL IV PUSH (10:32)
[2025-05-18] MEDS: oxyCODONE HCL (*CRX) 5 MG TAB IR PO (11:22)
== END 2025-05-18 11:26 | disposition home or self-care (01) ==
PROVIDERS: PCP Physician Assistant Medical; Visit Provider Surgery
PROC: (CPT 11771; principal; 2025-05-18 07:30)
PROC: (CPT 11771; 2025-05-18 07:30)
DX: L05.91 Pilonidal cyst without abscess (principal); L72.0 Epidermal cyst; F17.210 Nicotine dependence, cigarettes, uncomplicated; E66.9 Obesity, unspecified; Z68.30 Body mass index [BMI] 30.0-30.9, adult
CPT/HCPCS: 11771; 11422; 12042; 88305; J0690; A9270; J0330; J1100; J1171; J1200; J1885; J2003; J2004; J2250; J2405; J2704; J3010; J7120